=== PATIENT | female | born 1925 | race African-American/Black ===

== ENCOUNTER → 2016-09-15 | Outpatient (CLI) | payer MEDICARE, MEDICAID ==
[~2016-09-15] MED LIST: AMLO10TA4; ASPI-1035; GABA300C; HYDR-1348; METF1000; OLME40TA12; PRAV20TA; RAMI10CA; SITA100T6
== END | disposition home or self-care (01) ==
LOC: MAMMO 09:45
PROVIDERS: ATTEND Internal Medicine
DX: R92.8 Other abnormal and inconclusive findings on diagnostic imaging of breast (principal)
CPT/HCPCS: G0206